=== PATIENT | female | born 1945 | race Caucasian/White ===

== ENCOUNTER → 2016-02-12 16:45 | Outpatient (CLI) | payer MEDICARE, BC ==
[2011-03-24 14:07] VITALS: BMI 33.0
== END | disposition home or self-care (01) ==
LOC: D.MAMMO 15:00
DX: R92.8 Other abnormal and inconclusive findings on diagnostic imaging of breast (principal)

== ENCOUNTER → 2018-01-04 06:45 | Outpatient (CLI) | payer MEDICARE, BC ==
[2011-03-24 14:07] VITALS: BMI 33.0
== END | disposition home or self-care (01) ==
LOC: D.MRI 06:45
DX: R41.3 Other amnesia (principal)

== ENCOUNTER → 2018-03-10 12:59 | Outpatient (CLI) | payer MEDICARE, BC ==
[2011-03-24 14:07] VITALS: BMI 33.0
== END | disposition home or self-care (01) ==
LOC: D.RAD 12:59
DX: M25.552 Pain in left hip (principal); M25.551 Pain in right hip

== ENCOUNTER 2018-04-25 08:00 | Outpatient (CLI) | payer MEDICARE, BC ==
[2011-03-24 14:07] VITALS: BMI 33.0
== END 2018-04-25 09:00 | disposition home or self-care (01) ==
LOC: D.MAMMO 08:00
PROVIDERS: ATTEND Family Medicine Adult Medicine
DX: Z12.31 Encounter for screening mammogram for malignant neoplasm of breast (principal)

== ENCOUNTER 2018-08-01 16:06 | Inpatient (IN) | payer MEDICARE, BC ==
[~2018-08-01] VITALS: Ht 157.5 cm; Wt 82.6 kg
[2018-08-01] MEDS ORDERED: TENORMIN100 MG PO (16:28)
[2018-08-01] MEDS ORDERED: CATAPRES0.1 MG PO (16:29)
[2018-08-01] MEDS ORDERED: LIPITOR10 MG PO (16:29)
[2018-08-01] MEDS ORDERED: FUROSEMIDE20 MG PO (16:31)
[2018-08-01] MEDS ORDERED: CYMBALTA60 MG PO (16:31)
[2018-08-01] MEDS ORDERED: MOBIC7.5 MG PO (16:32)
[2018-08-01] MEDS ORDERED: HYDROCODON-ACE1 EA10 PO (16:32)
[2018-08-01] MEDS ORDERED: TRIBENZOR 40-11 EACH PO (16:34)
[2018-08-01] MEDS ORDERED: K-TAB10 MEQ PO (16:34)
[2018-08-01] MEDS ORDERED: TEMAZEPAM30 MG PO (16:35)
[2018-08-01] MEDS ORDERED: ZANAFLEX4 MG PO (16:36)
[2018-08-01] MEDS ORDERED: TRAZODONE HCL150 MG PO (16:36)
[2018-08-01] MEDS ORDERED: VITAMIN D5000 UNIT (16:37)
[2018-08-01 16:38] VITALS: BP 190/67; BMI 33.3
[2018-08-01 19:25] LABS: CKMB 0.3 U/L (0.0-3.6)
[2018-08-01 19:26] LABS: TROPONIN-I < 0.017 ng/mL (0.000-0.060)
[2018-08-01 21:12] VITALS: BP 171/68
[2018-08-01 21:26] LABS: BASOPHILS 0.3 % (0-2); EOSINOPHILS 2.1 % (0-7); HEMATOCRIT 36.4 % (36.0-48.0); HEMOGLOBIN 12.5 g/dL (12-16); IMMATURE GRANULOCYTES 0.2 % (0-5); LYMPHOCYTES 15.6 % (15-50); MCH 28.5 pg (26.0-34.0); MCHC 34.3 g/dL (31.0-37.0); MCV 83.1 fL (80.0-100.0); MEAN PLATELET VOLUME 9.4 fL (7.4-10.4); MONOCYTES 8.9 % (2-11); NEUTROPHILS 72.9 % (40-80); PLATELET COUNT 253 10x3/uL (130-400); RBC 4.38 10x6/uL (4.00-5.40); RDW 13.2 % (11.5-14.5); WBC 11.2 10x3/uL (4.8-10.8)
[2018-08-01 21:35] LABS: ALBUMIN 3.5 g/dL (3.4-5.0); ANION GAP 13.7 mmol/L (8-16); BILIRUBIN - TOTAL 0.26 mg/dL (0.2-1.3); CALCIUM 9.2 mg/dL (8.5-10.1); CARBON DIOXIDE 27.1 mmol/L (21.0-32.0); PROTEIN - SERUM 7.9 g/dL (6.4-8.2)
[2018-08-01 21:46] LABS: POTASSIUM - SERUM 2.8 mmol/L (3.5-5.1)
[2018-08-01 23:11] LABS: APPEARANCE CLEAR (CLEAR); BILIRUBIN NEGATIVE (NEGATIVE); COLOR YELLOW (YELLOW); GLUCOSE NEGATIVE (NEGATIVE); KETONE NEGATIVE (NEGATIVE); NITRITE NEGATIVE (NEGATIVE); PROTEIN NEGATIVE (NEGATIVE); SPECIFIC GRAVITY 1.005 (1.005-1.020); UROBILINOGEN NORMAL (NORMAL)
[2018-08-02 01:12] VITALS: BP 177/70
[2018-08-02 04:45] VITALS: BP 160/64
[2018-08-02 07:55] LABS: BASOPHILS 0.3 % (0-2); EOSINOPHILS 1.7 % (0-7); HEMATOCRIT 34.1 % (36.0-48.0); HEMOGLOBIN 11.8 g/dL (12-16); IMMATURE GRANULOCYTES 0.2 % (0-5); LYMPHOCYTES 16.8 % (15-50); MCH 28.2 pg (26.0-34.0); MCHC 34.6 g/dL (31.0-37.0); MCV 81.6 fL (80.0-100.0); MONOCYTES 7.8 % (2-11); NEUTROPHILS 73.2 % (40-80); PLATELET COUNT 233 10x3/uL (130-400); RBC 4.18 10x6/uL (4.00-5.40); RDW 13.3 % (11.5-14.5); WBC 10.5 10x3/uL (4.8-10.8)
[2018-08-02 08:13] LABS: ALBUMIN 3.3 g/dL (3.4-5.0); ANION GAP 14.5 mmol/L (8-16); BILIRUBIN - TOTAL 0.4 mg/dL (0.2-1.3); CALCIUM 8.6 mg/dL (8.5-10.1); CARBON DIOXIDE 25.1 mmol/L (21.0-32.0); CREATININE - SERUM 0.8 mg/dL (0.6-1.3); MAGNESIUM - SERUM 1.1 mg/dL (1.8-2.4); PROTEIN - SERUM 7.3 g/dL (6.4-8.2)
[2018-08-02 08:18] LABS: POTASSIUM - SERUM 2.6 mmol/L (3.5-5.1)
[2018-08-02 09:29] VITALS: BP 175/81
[2018-08-02 12:05] VITALS: Ht 157.5 cm; Wt 82.6 kg
[2018-08-02 13:26] LABS: CKMB 0.9 U/L (0.0-3.6); CREATINE KINASE 68 UL (21-215)
[2018-08-02 13:28] LABS: TROPONIN-I < 0.017 ng/mL (0.000-0.060)
[2018-08-02 13:42] VITALS: BP 177/67
[2018-08-02 16:45] VITALS: BP 181/80
[2018-08-02 20:06] LABS: CKMB 0.8 U/L (0.0-3.6); CREATINE KINASE 76 UL (21-215)
[2018-08-02 20:07] LABS: TROPONIN-I < 0.017 ng/mL (0.000-0.060)
[2018-08-02 20:48] VITALS: BP 133/70
[2018-08-03] VITALS (7 sets, daily range): BP systolic 148–198; BP diastolic 60–100
[2018-08-03 00:14] LABS: CKMB 1.1 U/L (0.0-3.6); CREATINE KINASE 89 UL (21-215)
[2018-08-03 00:15] LABS: TROPONIN-I < 0.017 ng/mL (0.000-0.060)
[2018-08-03 04:18] LABS: BASOPHILS 0.2 % (0-2); EOSINOPHILS 1.2 % (0-7); HEMATOCRIT 35.5 % (36.0-48.0); HEMOGLOBIN 12.3 g/dL (12-16); IMMATURE GRANULOCYTES 0.4 % (0-5); LYMPHOCYTES 16.3 % (15-50); MCH 28.5 pg (26.0-34.0); MCHC 34.6 g/dL (31.0-37.0); MCV 82.4 fL (80.0-100.0); MONOCYTES 11.9 % (2-11); PLATELET COUNT 242 10x3/uL (130-400); RBC 4.31 10x6/uL (4.00-5.40); RDW 13.3 % (11.5-14.5); WBC 10.3 10x3/uL (4.8-10.8)
[2018-08-03 04:34] LABS: ALBUMIN 3.3 g/dL (3.4-5.0); ALKALINE PHOSPHATASE 78 U/L (46-116); ALT (SGPT) 19 U/L (10-68); BILIRUBIN - TOTAL 0.36 mg/dL (0.2-1.3); CALCIUM 7.9 mg/dL (8.5-10.1); CARBON DIOXIDE 24.4 mmol/L (21.0-32.0); CHLORIDE - SERUM 98 mmol/L (98-107); CREATININE - SERUM 0.7 mg/dL (0.6-1.3); GLUCOSE 154 mg/dL (74-106); MAGNESIUM - SERUM 1.1 mg/dL (1.8-2.4); PROTEIN - SERUM 7.4 g/dL (6.4-8.2); SODIUM 134 mmol/L (136-145); eGFR NON AFRICAN AMERICAN 87 mL/min (90-120)
[2018-08-03 04:45] LABS: CALC OSMOLALITY 267 mosm/kg (275-300); UREA NITROGEN 5 mg/dL (7-18)
[2018-08-03 04:47] LABS: POTASSIUM - SERUM 2.6 mmol/L (3.5-5.1)
--- NOTE | 2018-08-03 10:00 | CN ---
PATIENT NAME:ERASMO MANSFIELD MEDICAL RECORD: [id number] : 45 LOCATION:D.[facility] ADMIT DATE: 08/01/18 ACCOUNT: [id number] CONSULTING PHYSICIAN: NOLA APODACA MD REFERRING PHYSICIAN: CECIL REYNOLDS MD DATE OF CONSULTATION: 08/02/2018 CARDIOLOGY CONSULTATION DATE OF SERVICE: 08/02/2018 DIAGNOSES: 1. Palpitations. 2. Dizziness. 3. Coronary artery disease. 4. Previous percutaneous transluminal coronary angioplasty stent. 5. Hypertension. 6. Hyperlipidemia. 7. Dehydration. 8. Short-term memory loss. HISTORY OF PRESENT ILLNESS: Mrs. Mansfield is a patient well known to us. She has past history of coronary artery disease, previous PTCA stent. She has not had any anginal symptomatology, no chest pain or chest discomfort. She complains of intermittent palpitations and dizziness. Her EKG is with no ST-T abnormalities. Telemetry has been with no dysrhythmias since she has been in. PHYSICAL EXAMINATION: GENERAL APPEARANCE: Well-nourished, well-developed, appears stated age. Level of distress, comfortable. PSYCHIATRIC: Mental status, alert, normal affect. Orientation, oriented to time, place and person. EYES: Lids and conjunctiva, noninjected. No discharge, no pallor. ENT: Lips, teeth, gums, normal dentition. Oropharynx, no cyanosis, no pallor. NECK: Carotid arteries, bilateral normal upstroke, no bruits, no thrills. JUGULAR VEINS: No jugular venous pressure or distention. CERVICAL LYMPH NODES: Nontender, nonenlarged. THYROID: Not enlarged. Nontender. No nodules. LUNGS: Respiratory effort, unlabored. CHEST: Normal curvature. No thoracic deformity. No chest wall tenderness. Percussion, resonant. Auscultation, clear. No wheezes, no rales, no rhonchi. CARDIOVASCULAR: Precordial exam, nondisplaced. No heaves or pericardial thrills. Rate and rhythm, regular. Heart sounds, normal S1, normal S2. No S3, no gallop, no rub. Systolic murmur, not heard. Diastolic murmur, not heard. EXTREMITIES: No cyanosis, no edema. Peripheral pulses, full and equal in all extremities, except as noted. No bruits appreciated. ABDOMEN: Soft, nondistended. Normal aorta. No bruit. Nontender. No masses. Liver, nontender, no hepatomegaly. Spleen, nontender, no splenomegaly. MUSCULOSKELETAL: No joint tenderness. No joint swelling. No erythema. NEUROLOGICAL: Normal gait, normal strength, normal tone. SKIN: Warm and dry. OVERALL IMPRESSION: Palpitations, unknown etiology. She is on atenolol for blood pressure as well as Tribenzor. Her blood pressure is under good control with this. Heart rate has been 60 and sinus. At this time, we will continue CONSULT REPORT [id number] ERASMO MANSFIELD telemetry and no other cardiac workup or treatment is necessary. Continue the atenolol. TRANSINT:[id number] Voice Confirmation ID: [id number] DOCUMENT ID: [id number] NOLA APODACA MD at 1000 CC: [id number] DICTATION DATE: 08/02/18924 AUDIOVISUAL LEAD TECHNICIAN: 08/02/18 1101 ADM IN [place] [id number] [place] [id number]
--- NOTE | 2018-08-03 10:00 | EC ---
PATIENT:ERASMO MANSFIELD DATE OF SERVICE: 08/01/18 SEX: F MEDICAL RECORD: [id number] DATE OF : [birth year] LOCATION:D.[facility] [place] AGE OF PATIENT: 72 ADMISSION DATE: 08/01/18 REFERRING PHYSICIAN: INTERPRETING PHYSICIAN: NOLA ESCALANTE MD ECHOCARDIOGRAM REPORT ECHO CHARGES 4 ECHO COMPLETE Date: 08/02/18 CLINICAL DIAGNOSIS: LE SWELLING ECHOCARDIOGRAPHIC MEASUREMENTS (adult normal given) AC root (d.<3.7cm) 2.3 cm LV Septum d (<1.2 cm> 1.0 cm Valve Excursion 0.9 cm LV Septum (systole) 1.1 cm Left Atria (s.<4.0cm> 3.5 cm LVPW d(<1.2cm) 1.1 cm RV (d.<2.3cm) 2.4 cm LVPW (sytole) 1.2 cm LV diastole(<5.6CM) 4.7 cm MV E-F(>70mm/sec) cm LV systole 3.7 cm LVOT Diameter 1.5 cm MV exc.(>10mm) cm Est.ejection fraction (50-75%) % DOPPLER: LVIT cm/sec A 168 cm/sec E 114 cm/sec LA cm/sec RVSP 27.1 mmHg LVOT 131 cm/sec AOP1/2T m/s Asc. Ao 258 cm/sec RVOT 96 cm/sec RA cm/sec PA 101 cm/sec AV Gradient Peak 26.6 mmHg AV Mean 17.9 mmHg AV Area 1.0 cm MV Gradient Peak 13.9 mmHg MV Mean 6.1 mmHg MV Area cm COMMENTS: Electric Detector Operator: Prasad ZHANG Academic Interventionist: 1 Dr. Escalante TAPE# PACS Pericardial Effusion Y DATE OF SERVICE: 08/02/2018 FINDINGS: 1. Left ventricular chamber size is within normal limits. Left ventricular systolic function is normal. Overall ejection fraction is estimated at 60%. 2. Left atrium, right atrium, and right ventricle chamber sizes are within normal limit. 3. Valvular structures have normal structure and motion. 4. Doppler interrogation reveals mild tricuspid regurgitation. No other valvular insufficiency or stenosis. Pulmonary systolic pressure is estimated at ECHOCARDIOGRAM REPORT [id number] ERASMO MANSFIELD 27 mmHg. 5. No evidence of pericardial effusion or left ventricular thrombus. TRANSINT:[id number] Voice Confirmation ID: [id number] DOCUMENT ID: [id number] NOLA ESCALANTE MD at 1000 CC: [id number] DICTATION DATE: 08/02/18 1545 CONTAINER REPAIRER: 08/02/182001 ADM IN [facility] [address] [place] [id number]
[2018-08-03 16:01] LABS: MAGNESIUM - SERUM 1.1 mg/dL (1.8-2.4)
[2018-08-03 16:04] LABS: POTASSIUM - SERUM 2.8 mmol/L (3.5-5.1)
[2018-08-04 01:25] VITALS: BP 161/69
[2018-08-04 05:29] VITALS: BP 155/68
[2018-08-04 06:43] LABS: BASOPHILS 0.3 % (0-2); EOSINOPHILS 1.8 % (0-7); HEMATOCRIT 35.4 % (36.0-48.0); HEMOGLOBIN 12.2 g/dL (12-16); IMMATURE GRANULOCYTES 0.2 % (0-5); LYMPHOCYTES 19.7 % (15-50); MCH 28.4 pg (26.0-34.0); MCHC 34.5 g/dL (31.0-37.0); MCV 82.5 fL (80.0-100.0); MEAN PLATELET VOLUME 9.3 fL (7.4-10.4); MONOCYTES 12.3 % (2-11); NEUTROPHILS 65.7 % (40-80); PLATELET COUNT 273 10x3/uL (130-400); RBC 4.29 10x6/uL (4.00-5.40); RDW 13.6 % (11.5-14.5); WBC 10.8 10x3/uL (4.8-10.8)
[2018-08-04 07:04] LABS: ALBUMIN 3.1 g/dL (3.4-5.0); ALKALINE PHOSPHATASE 72 U/L (46-116); ALT (SGPT) 21 U/L (10-68); BILIRUBIN - TOTAL 0.35 mg/dL (0.2-1.3); CALC OSMOLALITY 255 mosm/kg (275-300); CALCIUM 7.8 mg/dL (8.5-10.1); CARBON DIOXIDE 23.1 mmol/L (21.0-32.0); CHLORIDE - SERUM 96 mmol/L (98-107); CREATININE - SERUM 0.6 mg/dL (0.6-1.3); GLUCOSE 104 mg/dL (74-106); MAGNESIUM - SERUM 1.5 mg/dL (1.8-2.4); POTASSIUM - SERUM 3.3 mmol/L (3.5-5.1); SODIUM 129 mmol/L (136-145); UREA NITROGEN 5 mg/dL (7-18); eGFR NON AFRICAN AMERICAN > 90 mL/min (90-120)
[2018-08-04 09:11] VITALS: BP 176/73
[2018-08-04 12:56] VITALS: BP 166/71
--- NOTE | 2018-08-04 14:19 | MORECARE ---
CASE MANAGEMENT DISCHARGE SUMMARY PATIENT: ERASMO MANSFIELD UNIT: [id number] ADM DATE: 08/01/18 AGE: 72 : 45 SEX: F ROOM/BED: D.2201 AUTHOR: DRU JENKINS PHYSICIAN: REFERRING PHYSICIAN: CECIL REYNOLDS MD DATE OF SERVICE: 08/04/18 Discharge Plan Patient Name: ERASMO MANSFIELD [facility] [facility] 1945 Planned Disposition: Anticipated Discharge Date: Discharge Date: Expected LOS: Initial Reviewer: [email or web address] Initial Review Date: 08/04/2018 Generated: 08/04/18 3:19 pm DCPIA - Discharge Planning Initial Assessment Updated by [email or web address]: Radha Choudhary on 08/04/18 2:17 pm * Is the patient Alert and Oriented? Yes * PCP GAIL * Pharmacy [facility] * Preadmission Environment Home Alone * ADLs Independent * Other Equipment HEARING AIDS * List name and contact numbers for known caregivers / representatives who currently or will assist patient after discharge: EFRAIN AKERS, DAUGHTER, * Verbal permission to speak to the caregivers and representatives has been obtained from the patient. Yes * Additional services required to return to the preadmission environment? Yes * Can the patient safely return to the preadmission environment? Yes * Has this patient been hospitalized within the prior 30 days at any hospital? No Patient Name: ERASMO MANSFIELD Page [id number] at 1419 All edits/amendments must be made on the electronic document DICTATION DATE: 08/04/181418 SKI MAKER: COURTNEY 08/04/18 1419 RPT#: [id number] DC DATE: STATUS: ADM IN [facility] [address] [place] [address] END OF REPORT
--- NOTE | 2018-08-04 14:29 | MORECARE ---
CASE MANAGEMENT DISCHARGE SUMMARY PATIENT: ERASMO MANSFIELD UNIT: [id number] ADM DATE: 08/01/18 AGE: 72 : 45 SEX: F ROOM/BED: D.2201 AUTHOR: ALICE,DOC PHYSICIAN: REFERRING PHYSICIAN: CECIL REYNOLDS MD DATE OF SERVICE: 08/04/18 Discharge Plan Patient Name: ERASMO MANSFIELD Facility: [facility]:[place] : 1945 Planned Disposition: Anticipated Discharge Date: Discharge Date: Expected LOS: Initial Reviewer: [email or web address] Initial Review Date: 08/04/2018 Generated: 08/04/18 3:29 pm Comments DCP- Discharge Planning Updated by [id number]: Radhaaide Choudhary on 08/04/18 1:[address] Patient Name: ERASMO MANSFIELD Admission Status: Urgent Accout number: [id number] Admission Date: 08-01-2018 : 1945 Admission Diagnosis:ELEVATED WHITE BLOOD CELL COUNT, UNSPECIFIED Attending: CECIL BUSH Current LOS: 3 Anticipated DC Date: Planned Disposition: Primary Insurance: MEDICARE A & B Discharge Planning Comments: CM MET WITH PATIENT ABOUT DC PLANNING/ NEEDS. PATIENT STATES SHE IS NOT INTERESTED IN [facility] BUT WOULD LIKE . [facility] OR [facility] AND NEEDS A WALKER, JAVAD FOR [place]. SHE WANTS ME TO CONTACT HER DAUGHTER TO SEE IF SHE MADE THE RIGHT DECISIONS ON THE HH. I CALLED HER DAUGHTER ITA LACKEY AT [phone] BUT NO ANSWER. CM TO FOLLOW AND ASSIST NEEDED. Laser Technician: Radha Choudhary DCPIA - Discharge Planning Initial Assessment Updated by [id number]: Radha Choudhary on 08/04/18 2:17 pm * Is the patient Alert and Oriented? Yes * PCP GAIL * Pharmacy [facility] * Preadmission Environment Home Alone * ADLs Independent * Other Equipment HEARING AIDS * List name and contact numbers for known caregivers / representatives who currently or will assist patient after discharge: EFRAIN AKERS, DAUGHTER, * Verbal permission to speak to the caregivers and representatives has been obtained from the patient. Yes * Additional services required to return to the preadmission environment? Yes * Can the patient safely return to the preadmission environment? Yes * Has this patient been hospitalized within the prior 30 days at any hospital? No Coverage Notice Reviewer: [email or web address] - Radha Choudhary Notice Issued Date-Time: 08/04/2018 14:21 Notice Type: Patient Choice Letter Notice Delivered To: Patient Relationship to Patient: Medicaid Service Coordinator Name: Delivery Method: HAND - Hand Delivered Sudha Days: Prior Verbal Notification: Recipient Understood Notice: Yes Recipient Signature: Yes Med Rec Note Co-signed by Attending: Coverage Notice Comment: [facility], OR [facility]. Last DP export: 08/04/18 1:19 p Patient Name: ERASMO MANSFIELD Page [id number] at 1429 All edits/amendments must be made on the electronic document DICTATION DATE: 08/04/181427 RAILROAD CONSTRUCTION DIRECTOR: COURTNEY 08/04/181427 RPT#: [id number] DC DATE: STATUS: ADM IN [facility] [address] [place] [address] END OF REPORT
--- NOTE | 2018-08-04 15:27 | MORECARE ---
CASE MANAGEMENT DISCHARGE SUMMARY PATIENT: ERASMO MANSFIELD UNIT: [id number] ADM DATE: 08/01/18 AGE: 72 : 45 SEX: F ROOM/BED: D.2201 AUTHOR: ALICE,DOC PHYSICIAN: REFERRING PHYSICIAN: CECIL REYNOLDS MD DATE OF SERVICE: 08/04/18 Discharge Plan Patient Name: ERASMO MANSFIELD Facility: [facility]:[place] : 1945 Planned Disposition: Anticipated Discharge Date: Discharge Date: Expected LOS: Initial Reviewer: [email or web address] Initial Review Date: 08/04/2018 Generated: 08/04/18 4:26 pm Comments DCP- Discharge Planning Updated by [email or web address]: Radha Choudhary on 08/04/18 2:[address] Patient Name: ERASMO MANSFIELD Admission Status: Urgent Accout number: [id number] Admission Date: 08-01-2018 : 1945 Admission Diagnosis:ELEVATED WHITE BLOOD CELL COUNT, UNSPECIFIED Attending: CECIL BUSH Current LOS: 3 Anticipated DC Date: Planned Disposition: Primary Insurance: MEDICARE A & B Discharge Planning Comments: CM MET WITH PATIENT ABOUT DC PLANNING/ NEEDS. PATIENT STATES SHE IS NOT INTERESTED IN [facility] BUT WOULD LIKE . [facility] OR [facility] AND NEEDS A WALKER, JAVAD FOR [place]. SHE WANTS ME TO CONTACT HER DAUGHTER TO SEE IF SHE MADE THE RIGHT DECISIONS ON THE HH. I CALLED HER DAUGHTER ITA LACKEY AT [phone] BUT NO ANSWER. CM TO FOLLOW AND ASSIST NEEDED. Road Grader: Radha Choudhary Appended by Radha Choudhary on 08/04/2018 15:19 CDT: PATIENT STATED THAT IF THE DOCTOR RECOMENDS REHAB THEN SHE WOULD BE INTERESTED IN INPATIENT REHAB. DCPIA - Discharge Planning Initial Assessment Updated by [email or web address]: Radha Choudhary on 08/04/18 2:17 pm * Is the patient Alert and Oriented? Yes * PCP GAIL * Pharmacy [facility] * Preadmission Environment Home Alone * ADLs Independent * Other Equipment HEARING AIDS * List name and contact numbers for known caregivers / representatives who currently or will assist patient after discharge: EFRAIN AKERS, DAUGHTER, * Verbal permission to speak to the caregivers and representatives has been obtained from the patient. Yes * Additional services required to return to the preadmission environment? Yes * Can the patient safely return to the preadmission environment? Yes * Has this patient been hospitalized within the prior 30 days at any hospital? No Coverage Notice Reviewer: [email or web address] Olena Radhaaide Choudhary Notice Issued Date-Time: 08/04/2018 14:21 Notice Type: Patient Choice Letter Notice Delivered To: Patient Relationship to Patient: Bookkeeping Service Sales Agent Name: Delivery Method: HAND - Hand Delivered Sudha Days: Prior Verbal Notification: Recipient Understood Notice: Yes Recipient Signature: Yes Med Rec Note Co-signed by Attending: Coverage Notice Comment: [facility], OR [facility]. Last DP export: 08/04/18 1:29 p Patient Name: ERASMO MANSFIELD Page [phone] at 1527 All edits/amendments must be made on the electronic document DICTATION DATE: 08/04/18 1526 THIRD MATE: COURTNEY 08/04/18 1526 RPT#: [id number] DC DATE: STATUS: ADM IN [facility] [address] [place] [address] END OF REPORT
[2018-08-04 16:45] VITALS: BP 131/62
[2018-08-04 21:22] VITALS: BP 116/65
[2018-08-05 01:33] VITALS: BP 187/73
[2018-08-05 04:44] LABS: ALBUMIN 3.1 g/dL (3.4-5.0); ANION GAP 13.6 mmol/L (8-16); BILIRUBIN - TOTAL 0.16 mg/dL (0.2-1.3); CALCIUM 7.7 mg/dL (8.5-10.1); CARBON DIOXIDE 23.4 mmol/L (21.0-32.0); MAGNESIUM - SERUM 1.5 mg/dL (1.8-2.4); PROTEIN - SERUM 6.8 g/dL (6.4-8.2)
[2018-08-05 04:45] LABS: CREATININE - SERUM 0.9 mg/dL (0.6-1.3)
[2018-08-05 06:04] VITALS: BP 164/66
[2018-08-05 07:51] LABS: BASOPHILS 0.4 % (0-2); EOSINOPHILS 4.4 % (0-7); HEMATOCRIT 34.3 % (36.0-48.0); HEMOGLOBIN 11.6 g/dL (12-16); IMMATURE GRANULOCYTES 0.2 % (0-5); LYMPHOCYTES 19.9 % (15-50); MCH 28.4 pg (26.0-34.0); MCHC 33.8 g/dL (31.0-37.0); MCV 83.9 fL (80.0-100.0); MEAN PLATELET VOLUME 9.5 fL (7.4-10.4); NEUTROPHILS 66.1 % (40-80); PLATELET COUNT 238 10x3/uL (130-400); RBC 4.09 10x6/uL (4.00-5.40); RDW 13.8 % (11.5-14.5); WBC 10.7 10x3/uL (4.8-10.8)
[2018-08-05 08:40] VITALS: BP 184/76
[2018-08-05 12:03] VITALS: BP 183/69
[2018-08-05] MEDS ORDERED: ROCEPHIN 1 GM/D51 G1 IV (15:16)
[2018-08-05] MEDS ORDERED: QUESTRAN PACKET PO (15:16)
[2018-08-05] MEDS ORDERED: K-DUR20 MEQ PO (15:17)
[2018-08-05] MEDS ORDERED: OXYBUTYNIN CHLOR5 MG PO (15:17)
[2018-08-05] MEDS ORDERED: LOPERAMIDE HCL2 MG PO (15:17)
[2018-08-05] MEDS ORDERED: FLORAJEN3 CAPS460 MG PO (15:17)
[2018-08-05] MEDS ORDERED: RESTORIL15 MG PO (15:18)
[2018-08-05] MEDS ORDERED: PROTONIX40 MG PO (15:19)
[2018-08-05 16:39] VITALS: BP 183/68
--- NOTE | 2018-08-06 11:18 | CN ---
PATIENT NAME:ERASMO MANSFIELD MEDICAL RECORD: [id number] : 45 LOCATION:D.[facility] ADMIT DATE: 08/01/18 ACCOUNT: [id number] CONSULTING PHYSICIAN: JAYLA FRANKEL MD REFERRING PHYSICIAN: CECIL REYNOLDS MD DATE OF CONSULTATION: 08/05/2018 IDENTIFYING DATA: The patient is 72 years old and she is admitted to the hospital on a voluntary basis. CHIEF COMPLAINT: None. HISTORY OF PRESENT ILLNESS: I was asked to see the patient because of concerns about dementia. I have examined the patient and will detail her mental status exam below, but she has no evidence of dementia. She does, however, have evidence of a serious and longstanding major depressive illness. She denies any substance abuse issues or thoughts of harming herself, but she endorses numerous neurovegetative depressive symptoms and has serious ongoing stressors that have intensified since her senior living and the of her . MENTAL STATUS EXAMINATION: The patient is awake, alert and oriented fully to person, place, time and situation. Her mood is depressed. Her affect is constricted. Thought processes are circumstantial. Memory, concentration, and abstraction abilities are intact. She denies any intent to harm herself or others as well as overt psychotic symptoms. ASSESSMENT: Major depression. PLAN: The patient is in need of ongoing antidepressant therapy. She is taking Restoril for sleep and I would prefer that this not be anything more than a very short term approach. I also have concerns about her use of hydrocodone for what is up by her account, chronic back pain that no one can seem to identify the pathology producing the pain. I am viewing these as depressive equivalents. I would recommend her Cymbalta be increased to 90 mg daily and that she be followed on an outpatient basis by the [facility] one of the local psychiatrist. In addition to this, there is an excellent outpatient counseling program at [facility] for geriatric patients. TRANSINT:[id number] Voice Confirmation ID: [id number] DOCUMENT ID: [id number] JAYLA FRANKEL MD at 1118 CC: [id number] DICTATION DATE: 08/05/18 1650 GROUND CREW LINES PERSON: 08/05/18 1812 DIS IN 08/05/18 [facility] [address] [place] [address]
== END 2018-08-05 18:07 | DRG 814 ==
LOC: D.MS 16:06
PROVIDERS: Family Medicine; ADMIT Family Medicine Adult Medicine; ATTEND Family Medicine Adult Medicine
DX: D72.829 Elevated white blood cell count, unspecified (principal); G93.41 Metabolic encephalopathy; E86.0 Dehydration; R41.0 Disorientation, unspecified; I95.1 Orthostatic hypotension; I25.10 Atherosclerotic heart disease of native coronary artery without angina pectoris; K21.9 Gastro-esophageal reflux disease without esophagitis; R73.9 Hyperglycemia, unspecified

== ENCOUNTER 2018-08-05 19:05 | Inpatient (IN) | payer MEDICARE, BC ==
[~2018-08-05] VITALS: Ht 157.5 cm; Wt 82.6 kg
[~2018-08-05 19:05] MED LIST: CATAPRES0.1 MG PO; CYMBALTA60 MG PO; FLORAJEN3 CAPS460 MG PO; FUROSEMIDE20 MG PO; HYDROCODON-ACE1 EA10 PO; K-DUR20 MEQ PO; K-TAB10 MEQ PO; LIPITOR10 MG PO; LOPERAMIDE HCL2 MG PO; MOBIC7.5 MG PO; OXYBUTYNIN CHLOR5 MG PO; PROTONIX40 MG PO; QUESTRAN PACKET PO; RESTORIL15 MG PO; ROCEPHIN 1 GM/D51 G1 IV; TEMAZEPAM30 MG PO; TENORMIN100 MG PO; TRAZODONE HCL150 MG PO; TRIBENZOR 40-11 EACH PO; VITAMIN D5000 UNIT; ZANAFLEX4 MG PO
[2018-08-05 19:19] VITALS: BMI 33.3
--- NOTE | 2018-08-05 21:21 | NUR ---
THE PATIENT IS ADMITTED TO THE REHAB UNIT. BED IS IN THE LOW POSITION WITH SIDERAILS X2 AND CALL LIGHT WITHIN REACH. THE PATIENT DEMONSTRTAES APPROPRIATE USE OF A CALL LIGHT. THE PATIENT APPEARS COMFORTABLE WITH NO QUESTIONS OR CONCERNS AT THIS TIME.
[2018-08-05 23:52] VITALS: BP 163/77
[2018-08-06 08:22] LABS: ANION GAP 14.4 mmol/L (8-16); CALCIUM 8.3 mg/dL (8.5-10.1); CARBON DIOXIDE 23.2 mmol/L (21.0-32.0); CREATININE - SERUM 0.8 mg/dL (0.6-1.3); POTASSIUM - SERUM 3.6 mmol/L (3.5-5.1)
[2018-08-06 08:25] LABS: HEMATOCRIT 33.3 % (36.0-48.0); HEMOGLOBIN 11.7 g/dL (12-16); MCH 28.6 pg (26.0-34.0); MCHC 35.1 g/dL (31.0-37.0); MEAN PLATELET VOLUME 9.3 fL (7.4-10.4); PLATELET COUNT 270 10x3/uL (130-400); RBC 4.09 10x6/uL (4.00-5.40); RDW 13.2 % (11.5-14.5); WBC 9.6 10x3/uL (4.8-10.8)
[2018-08-06 08:26] LABS: MCV 81.4 fL (80.0-100.0)
--- NOTE | 2018-08-06 09:00 | NUR ---
PATIENT IN REHAB ROOM. ALERT/ORIENT. C/O OF PAIN THAT SHE THINKS IS FROM A UTI. DR. Hector NAJERA NOTIFED. WILL CONTINUE WITH PLAN OF CARE
[2018-08-06 09:02] LABS: BASOPHILS 1 % (0-2); LYMPHOCYTES 22 % (15-50); MONOCYTES 6 % (2-11); NEUTROPHILS 71 % (40-80); PLATELET ESTIMATE NORMAL
[2018-08-06 10:44] VITALS: BP 174/63
[2018-08-06 11:40] VITALS: Ht 157.5 cm; Wt 82.6 kg
--- NOTE | 2018-08-06 11:44 | NUR ---
I have reviewed this patient and I concur with the Shift Assessment completed by the Licensed Practical Nurse today this shift.
--- NOTE | 2018-08-06 16:02 | NUR ---
PATIENT HELPED TO BATHROOM. MODERATE ASST OUT OF BED. USING WHEELED WALKER. PATIENT IS ABLE TO TRANSFER BY SELF FROM WALKER ONTO TOILET AND OFF OF TOILET. NEEDS ASST WITH WIPING SELF AND PULLING UP PANTS
[2018-08-06 21:24] VITALS: BP 163/72
--- NOTE | 2018-08-06 23:04 | NUR ---
THE PATIENT WAS LYING IN BED WHEN STAFF ENTERED HER ROOM. BED IS IN THE LOW POSITION WITH SIDERAILS X2 AND CALL LIGHT WITHIN REACH. THE PATIENT WAS EDUCATED ON AND DEMONSTRATES THE NEED TO CALL STAFF FOR ANYTHING THAT REQUIRES HER TO GET OUT OF BED. THE PATIENT APPEARS COMFORTABLE WITH NO QUESTIONS OR CONCERNS AT THIS TIME.
--- NOTE | 2018-08-07 03:24 | NUR ---
THE PATIENT APPEARS TO BE SLEEPING COMFORTABLY WITH SIDERAILS UP X2 AND CALL LIGHT WITHIN REACH.
[2018-08-07 08:12] VITALS: BP 169/72
--- NOTE | 2018-08-07 08:30 | NUR ---
I have reviewed this patient and I concur with the Shift Assessment completed by the Licensed Practical Nurse today this shift.
--- NOTE | 2018-08-07 09:28 | NUR ---
PATIENT IS ALERT/ORIENT. SITTING UP IN BED WATCHIN T.V. CALL LIGHT WITHIN REACH. VOICES NO NEEDS. WILL CONTINUE WITH PLAN OF CARE
--- NOTE | 2018-08-07 12:44 | NUR ---
PATIENT HELPED TO BATHROOM. MODERATE ASST FROM BED TO USING WHEELED WALKER.
[2018-08-07 19:23] VITALS: BP 145/55
--- NOTE | 2018-08-07 21:28 | NUR ---
THE PATIENT APPEARED TO BE SLEEPING BUT EASILY AWOKE WHEN STAFF ENTERED HER ROOM. BED IS IN THE LOW POSITION WITH SIDERAILS X2 AND CALL LIGHT WITHIN REACH. THE PATIENT WAS EDUCATED ON AND DEMONSTRATED TH BRAULIO TO CALL FOR STAFF WHENEVER SHE NEEDS TO GET OUT OF BED. THE PATIENT APPEARS COMFORTABLE WITH NO QUESTIONS OR CONCERNS AT THIS TIME.
[2018-08-08 06:59] LABS: BASOPHILS 0.3 % (0-2); EOSINOPHILS 2.3 % (0-7); HEMATOCRIT 36.5 % (36.0-48.0); HEMOGLOBIN 12.9 g/dL (12-16); IMMATURE GRANULOCYTES 0.2 % (0-5); LYMPHOCYTES 21.6 % (15-50); MCH 28.5 pg (26.0-34.0); MCHC 35.3 g/dL (31.0-37.0); MCV 80.8 fL (80.0-100.0); MEAN PLATELET VOLUME 9.4 fL (7.4-10.4); MONOCYTES 11.8 % (2-11); NEUTROPHILS 63.8 % (40-80); RBC 4.52 10x6/uL (4.00-5.40); RDW 13.1 % (11.5-14.5); WBC 11.6 10x3/uL (4.8-10.8)
[2018-08-08 07:01] LABS: PLATELET COUNT 348 10x3/uL (130-400)
[2018-08-08 07:10] LABS: ANION GAP 16.4 mmol/L (8-16); CALCIUM 9.1 mg/dL (8.5-10.1); CARBON DIOXIDE 21.4 mmol/L (21.0-32.0); CREATININE - SERUM 0.8 mg/dL (0.6-1.3); POTASSIUM - SERUM 3.8 mmol/L (3.5-5.1)
--- NOTE | 2018-08-08 07:59 | NUR ---
PATIENT ALERT/ORIENT. SITTING UP IN WHEELCHAIR FOR BREAKFAST. CALL LIGHT WITHIN REACH. VOICES NO NEEDS. WILL CONTINUE WITH PLAIN OF CARE
[2018-08-08 08:00] VITALS: BP 175/76
--- NOTE | 2018-08-08 09:47 | RHP ---
PATIENT: ERASMO MANSFIELD MEDICAL RECORD: [id number] ACCOUNT: [id number] LOCATION:[facility] : [birth year] ADMISSION DATE: 08/05/18 REHABILITATION HISTORY AND PHYSICAL EXAMINATION POST ADMISSION PHYSICIAN EXAMINATION DATE OF ADMISSION: 08/05/2018 ADMITTING DIAGNOSIS: Brain dysfunction, nontraumatic. HISTORY OF PRESENT ILLNESS: The patient is a 72-year-old female patient admitted with brain dysfunction, acute metabolic encephalopathy. She is a patient of Dr. Blanco, she was just seen in the office on 08/01/2018. Complained of some short-term memory problems. She has not been eating or drinking well. She was found to have orthostatic hypotension as well as significant leukocytosis. Her urine was clean at that time. She had some associated dizziness and palpitation. She is hard of hearing and wears hearing aids, got a history of coronary artery disease, myocardial infarction, arthritis. Her potassium was 2.6. Her sodium was 129. She had an elevated blood sugar. Chest x-ray did not show anything acute. MRI of her brain showed no acute abnormalities. She was started on IV fluids and IV Rocephin, telemetry and blood cultures. Cardiology was consulted secondary to her palpitations. She is on atenolol for blood pressure as well as Tribenzor. Her blood pressure has been under good control with this in the past, but has actually elevated here in the rehab. She needs to be watched closely for her electrolytes and also monitoring her sodium and her potassium. She previously lived alone. She was independent with ADLs and mobility. She is mod-to-max assist for ADLs and mobility. She fatigues quickly and has a decent balance, but this does make her a fall risk, which is a barrier to her discharge home. COMORBIDITIES: In this patient include acute metabolic encephalopathy, dehydration, hypokalemia, leukocytosis, orthostatic hypotension, palpitations, dizziness, hyperlipidemia, coronary artery disease, history of AR in the past, arthritis and hyperglycemia. PAST MEDICAL HISTORY: Significant for AR, hypertension, acid reflux, arthritis. PAST SURGICAL HISTORY: Includes hysterectomy and she has also had stent placement in the past. ALLERGIES: No known drug allergies. CURRENT MEDICATIONS: Include Rocephin 1 gram every 24 hours. She is on Floranex daily. She is on cholestyramine secondary to diarrhea. She is on hydrochlorothiazide 12.5 mg daily, amlodipine 10 mg daily, Benicar 40 mg daily. She is on Ditropan 5 mg daily. She is on Cymbalta 60 mg daily, Lipitor 40 mg daily, atenolol 100 mg daily. She is on [place] 10/325 one tab every 12 hours, but she states she has been on this on a every 6 hours basis. Lasix 20 mg b.i.d., Protonix 40 mg daily, potassium 20 mEq b.i.d., clonidine 0.1 mg b.i.d., loperamide 2 mg every 6 hours p.r.n. and Restoril 15 mg at bedtime p.r.n. HABITS: No current alcohol or tobacco use. FAMILY HISTORY: Noncontributory. HISTORY AND PHYSICAL [id number] ERASMO MANSFIELD SOCIAL HISTORY: The patient hopes to return back home and get back to her prior level of functioning. REVIEW OF SYSTEMS: GENERAL: Does complain of weakness and fatigue and also complaints of pain. HEENT: Denies cold, cough, or congestion. CARDIOVASCULAR: Denies any chest pain. PHYSICAL EXAMINATION: VITAL SIGNS: Stable. Her blood pressure is noted to be elevated at 174/63, her sat is 95% on respirations, pulse 78, afebrile. GENERAL: A well-developed female who is in no acute distress. She is somewhat obese. HEENT: Normocephalic and atraumatic. Mucosa moist. NECK: Supple. No lymphadenopathy. LUNGS: Clear at this time in upper berg. HEART: Regular rate and rhythm. No murmurs, rubs or gallops. ABDOMEN: Soft, nontender, nondistended. Positive bowel sounds times 4. EXTREMITIES: No clubbing, cyanosis or edema. NEUROLOGIC: She does have some mild changes in her mentation. LABORATORY DATA: Her white count is 9.6, H&H of 11.7 and 33.3. Her platelet count is 220. Her sodium is 128, potassium 3.6, BUN and creatinine 8 and 0.8 and blood sugar is noted to be 113. ASSESSMENT: This is a 72-year-old female patient admitted to rehab with a working diagnosis of metabolic encephalopathy. The patient has potential to make improvement. We instituted the following multidisciplinary therapies include, but not limited to physical, occupational, respiratory, speech, nutritional services, prosthetics and orthotics. Given her complex medical condition and risk for more complications, rehabilitation services cannot be provided at a low level of care such as jail facility. PLAN: 1. Admit to [facility] rehab for inpatient therapy to include the following disciplines: A. Physical therapy to improve gait, all transfer skills and bed mobility to a modified independent level. B. Occupational therapy to assist with gait and ADLs. C. Case management to assist with discharge planning and placement options. D. Nutrition to assist with nutritional needs. E. Rehabilitation nursing to assist in monitoring the patient's underlying medical conditions and to assist with any type of bowel and bladder management. 2. The patient's current medication and medical care will be continued. 3. The patient will be placed on standard fall precautions. 4. I am going to go ahead and adjust her medicines. 5. We will watch her blood pressure closely and adjust meds as needed. TRANSINT:[id number] Voice Confirmation ID: [id number] DOCUMENT ID: [id number] MATTEO notes whether there has been none or any medical/functional change since admission: - No change since pre-admission screen. HISTORY AND PHYSICAL [id number] ERASMO MANSFIELD attests patient continues to be appropriate for IRF: - Continues to be appropriate. AVA NAJERA MD at 0947 CC: [id number] DICTATION DATE: 08/06/18 1123 SHOE SHANKER: 08/06/18 1334 ADM IN [facility] [address] [place] [address]
--- NOTE | 2018-08-08 11:14 | NUR ---
PATIENT BACK IN BED AFTER THERAPY. CALL LIGHT WITHIN REACH
--- NOTE | 2018-08-08 13:18 | NUR ---
NUTRIIION F/U CHART REVIEWED, PT VISIT. PT TOLERATING REG DIET WTIH ~50% INTAKE RECENT MEALS. WILL CONTINUE TO PROVIDE DIET, MONITOR PO INTAKE. RD FOLLOWING
--- NOTE | 2018-08-08 14:06 | NUR ---
PATIENT IS A MIN TO MOD ASST FROM BED TO WHEELCHAIR
--- NOTE | 2018-08-08 14:17 | NUR ---
PATIENT ADMITTED TO REHAB FROM ACUTE FLOOR. DR. REYNOLDS IS HER PCP. SHE WOULD LIKE EITHER [facility] OR [facility] AT DISCHARGE. WILL CONTINUE TO FOLLOW WITH PATIENT AND WILL ASSIST WITH NEEDS.
--- NOTE | 2018-08-08 15:25 | NUR ---
PATIENT IN REHAB ROOM. WORKING WITH OCCUPATIONAL THERAPIST
--- NOTE | 2018-08-08 19:45 | NUR ---
ASSESSMENT PER FLOW SHEET, SALINE LOCK IN RIGHT HAND INTACT WITH NO REDNESS OR EDEMA, PT DENIES FLATUS, LOOSE BM TODAY, AND VOIDING WITH NO DIFFICULTY, PT RATES BACK PAIN 7/, INFORMED PT THAT I WILL CHECK TO SEE WHEN PAIN MED IS DUE, PT REPORTS THAT THE OTHER NURSE GAVE HER A PAIN PILL, PT DENIES NEEDS AT THIS TIME, BED IN LOW POSITION, SIDE RAILS X 2, CALL LIGHT IN REACH
--- NOTE | 2018-08-08 20:20 | NUR ---
PT WATCHING TV, SERVED H20 AND PROVIDED MENU
[2018-08-08 20:38] VITALS: BP 157/56
--- NOTE | 2018-08-08 21:35 | NUR ---
PT WATCHING TV, ADM 2100 MEDS PER MD ORDERS, SEE EMAR, PT DENIES NEEDS AT THIS TIME, BED IN LOW POSITION, SIDE RAILS X 2, CALL LIGHT IN REACH
--- NOTE | 2018-08-08 22:15 | NUR ---
REPORT TO KAREN Chris LPN
--- NOTE | 2018-08-08 23:08 | NUR ---
REST QUIETLY IN BED. EYE CLOSE, SIDE RAIL UPX2. BED LOW.
--- NOTE | 2018-08-09 03:57 | NUR ---
REST IN BED. CALL LIGHT IN REACH.
--- NOTE | 2018-08-09 04:47 | NUR ---
PT IN BED LOWEST POSITION, EYES CLOSED AROUSES EASILY TO VOICE, RESPIRATIONS EVEN AND UNLABORED, NO NEEDS NOTED, FLUIDS AND CALL LIGHT WITHIN REACH I have reviewed this patient and I concur with the Shift Assessment completed by the Licensed Practical Nurse today this shift.
--- NOTE | 2018-08-09 07:05 | NUR ---
RECEIVED REPORT. ASSISTED WITH SBA FROM BATHROOM TO BED. DENIES ANY NEEDS OR PAIN. ALERT AND ORIENTED X4. NO SIGNS OF DISTRESS NOTED. CALL LIGHT WITHIN REACH, FALL PRECAUTIONS IN PLACE. WILL CONTINUE TO MONITOR
[2018-08-09 08:00] VITALS: BP 173/58
--- NOTE | 2018-08-09 11:34 | NUR ---
IN THERAPY GYM PARTICIPATING IN OT. NO SIGNS OF DISTRESS NOTED
--- NOTE | 2018-08-09 14:08 | NUR ---
IN THERAPY GYM PARTICIPATING IN PT WITH NEFTALY. NO SIGNS OF DISTRESS NOTED
[2018-08-09 19:49] VITALS: BP 154/53
--- NOTE | 2018-08-09 20:00 | NUR ---
PATIENT RECEIVED SITTING UP IN BED WATCHING TV. VITAL SIGNS & ASSESSMENT DONE. NO C/O PAIN OR DISTRESS. BEDSIDE TABLE & CALL LIGHT WITHIN REACH. C/O LOOSE STOOLS REQUEST FOR IMMODIUM. WILL CONTINUE TO MONITOR.
--- NOTE | 2018-08-10 01:20 | NUR ---
PT IN BED LOWEST POSITION, EYES CLOSED AROUSES EASILY TO VOICE, RESPIRATIONS EVEN AND UNLABORED, NO NEEDS NOTED, FLUIDS AND CALL LIGHT WITHIN REACH
--- NOTE | 2018-08-10 01:23 | NUR ---
PT IN BED LOWEST POSITION, EYES CLOSED AROUSES EASILY TO VOICE, RESPIRATIONS EVEN AND UNLABORED, NO NEEDS NOTED, FLUIDS AND CALL LIGHT WITHIN REACH
--- NOTE | 2018-08-10 01:26 | NUR ---
PT IN BED LOWEST POSITION, EYES CLOSED AROUSES EASILY TO VOICE, RESPIRATIONS EVEN AND UNLABORED, NO NEEDS NOTED, FLUIDS AND CALL LIGHT WITHIN REACH
[2018-08-10 07:47] VITALS: BP 117/51
--- NOTE | 2018-08-10 08:15 | NUR ---
PT RESTING IN BED WITH EYES OPEN CALL LIGHT IN REACH WILL MONITER
[2018-08-10 08:46] LABS: BASOPHILS 0.4 % (0-2); HEMATOCRIT 34.5 % (36.0-48.0); IMMATURE GRANULOCYTES 0.2 % (0-5); LYMPHOCYTES 22.4 % (15-50); MCH 28.3 pg (26.0-34.0); MCHC 34.8 g/dL (31.0-37.0); MCV 81.4 fL (80.0-100.0); MEAN PLATELET VOLUME 8.8 fL (7.4-10.4); MONOCYTES 9.9 % (2-11); NEUTROPHILS 63.1 % (40-80); PLATELET COUNT 327 10x3/uL (130-400); RBC 4.24 10x6/uL (4.00-5.40); WBC 9.5 10x3/uL (4.8-10.8)
[2018-08-10 09:12] LABS: ANION GAP 15.3 mmol/L (8-16); CARBON DIOXIDE 25.5 mmol/L (21.0-32.0); CREATININE - SERUM 1.2 mg/dL (0.6-1.3); POTASSIUM - SERUM 3.8 mmol/L (3.5-5.1)
--- NOTE | 2018-08-10 15:24 | NUR ---
CARE TEAM MEETING: PATIENT DOING WELL IN THERAPY . TENATIVE DISCHARGE DATE IS 08/18/18. DISCHARGE PLANS ARE FOR PATIENT TO RETURN HOME. WILL CONTINUE TO FOLLOW WITH PATIENT.
--- NOTE | 2018-08-10 17:00 | NUR ---
I have reviewed this patient and I concur with the Shift Assessment completed by the Licensed Practical Nurse today this shift.
--- NOTE | 2018-08-10 18:01 | NUR ---
PT RESTING IN BED WITH EYES OPEN CALL LIGHT IN REACH WILL MONITER
[2018-08-10 19:42] VITALS: BP 159/45
--- NOTE | 2018-08-11 00:19 | NUR ---
PATIENT C/O INSOMNIA. TEMAZEPAM GIVE.
--- NOTE | 2018-08-11 03:30 | NUR ---
I have reviewed this patient and I concur with the Shift Assessment completed by the Licensed Practical Nurse today this shift.
--- NOTE | 2018-08-11 03:39 | NUR ---
PATIENT EYES CLOSED. RESPIRATIONS 18 & EVEN. BED LOW. CALL LIGHT WITHIN REACH. WILL CONTINUE TO MONITOR.
[2018-08-11 08:13] VITALS: BP 142/58
--- NOTE | 2018-08-11 16:39 | NUR ---
RESTING QUIETLY IN BED. EYES CLOSED. CALL LIGHT IN REACH. SIDE RAILS UP X2. BED IN LOWEST POSITION.
--- NOTE | 2018-08-11 17:39 | NUR ---
SITTING UP IN BED WATCHING TV. JUST FINISHED SUPPER. DENIES NEEDS. CALL LIGHT IN REACH
[2018-08-11 19:00] VITALS: BP 121/48
--- NOTE | 2018-08-11 20:00 | NUR ---
PATIENT RECEIVED SITTING UP IN BED. FAMILY AT BEDSIDE. ASSESSMENT & VITAL SIGNS DONE. NO C/O PAIN OR DISTRESS. ALARM WAIVER SIGNED IN THE PRECENSE OF HER DAUGHTER. WAIVER PLACED IN CHART. BED LOW. WALKER AT BEDSIDE. CALL LIGHT WITHIN REACH. WILL CONTINUE TO MONITOR.
--- NOTE | 2018-08-12 02:15 | NUR ---
PATIENT EYES CLOSED. RESPIRATIONS 18 & EVEN. BED LOW. CALL LIGHT & WALKER WITHIN REACH. WILL CONTINUE TO MONITOR.
--- NOTE | 2018-08-12 04:00 | NUR ---
PATIENT USED CALL LIGHT FOR TOILETEING PER THIS NURSE REQUEST. PATIENT HAD TAKEN SLEEPING & PAIN MEDICATION EARLIER IN SHIFT. PATIENT USED WALKER SLOW STEADY WALK. VOID. PATIENT RETURNED TO BED. CALL LIGHT WITHIN REACH. WILL CONMTINUE TO MONITOR.
--- NOTE | 2018-08-12 07:32 | NUR ---
PT RESTING IN BED WITH EYES OPEN CALL LIGHT IN REACH NO PROBLEMS WILL MONITER
[2018-08-12 07:34] LABS: BASOPHILS 0.7 % (0-2); HEMATOCRIT 35.1 % (36.0-48.0); HEMOGLOBIN 11.9 g/dL (12-16); IMMATURE GRANULOCYTES 0.1 % (0-5); LYMPHOCYTES 19.9 % (15-50); MCH 28.1 pg (26.0-34.0); MCHC 33.9 g/dL (31.0-37.0); MEAN PLATELET VOLUME 8.9 fL (7.4-10.4); MONOCYTES 11.3 % (2-11); PLATELET COUNT 287 10x3/uL (130-400); RBC 4.23 10x6/uL (4.00-5.40); RDW 13.3 % (11.5-14.5); WBC 7.3 10x3/uL (4.8-10.8)
[2018-08-12 08:08] LABS: ANION GAP 14.1 mmol/L (8-16); CALCIUM 9.3 mg/dL (8.5-10.1); CARBON DIOXIDE 25.9 mmol/L (21.0-32.0); CREATININE - SERUM 1.1 mg/dL (0.6-1.3)
[2018-08-12 09:00] VITALS: BP 148/34
[2018-08-12 19:31] VITALS: BP 141/45
--- NOTE | 2018-08-12 20:10 | NUR ---
THE PATIENT WAS LYING IN BED WHEN STAFF ENTERED HER ROOM. BED IS IN THE LOW POSITION WITH SIDERAILS X2 AND CALL LIGHT WITHIN REACH. THE PATIENT WAS EDUCATED ON THE NEED TO CALL STAFF WHENEVER SHE WOULD LIKE HELP GETTING OUT OF BED. THE PATIENT DEMONSTRATED UNDERSTANDING VIA TEACHBACK METHOD. THE PATIENT APPEARS COMFORTABLE WITH NO QUESTIONS OR CONCERNS AT THIS TIME.
--- NOTE | 2018-08-13 05:12 | NUR ---
THE PATIENT APPEARS TO BE SLEEPING WITH BED IN THE LOW POSITION WITH SIDERAILS X2 AND CALL LIGHT WITHIN REACH.
[2018-08-13 07:55] VITALS: BP 168/63
--- NOTE | 2018-08-13 08:15 | NUR ---
PT EATING BREAKFAST TOLERATING WELL WILL MONITER
--- NOTE | 2018-08-13 08:15 | NUR ---
PT RESTING IN BED EATING BREAKFAST TOLERATING WELL WILL MONITER
--- NOTE | 2018-08-13 12:59 | NUR ---
I have reviewed this patient and I concur with the Shift Assessment completed by the Licensed Practical Nurse today this shift.
--- NOTE | 2018-08-13 18:22 | NUR ---
PT RESTING IN BED WITH EYES OPEN CALL LIGHT IN REACH WILL MONITER
--- NOTE | 2018-08-13 19:31 | NUR ---
THE PATIENT WAS LYING IN BED AND WATCHING TELEVISION WHEN STAFF ENTERED HER ROOM. BED IS IN THE LOW POSITION WITH SIDERAILS X2 AND CALL LIGHT WITHIN REACH. THE PATIENT WAS EDUCATED ON AND DEMONSTRATES THE NEED TO CALL FOR ASSISTANCE WITH ADLS. THE PATIENT APPEARS COMFORTABLE WITH NO QUESTIONS OR CONCERNS AT THIS TIME.
[2018-08-13 20:39] VITALS: BP 111/38
--- NOTE | 2018-08-14 07:41 | NUR ---
PT RESTING IN BED WITH EYES OPEN CALL LIGHT IN REACH WILL MONITER
--- NOTE | 2018-08-14 12:47 | NUR ---
I have reviewed this patient and I concur with the Shift Assessment completed by the Licensed Practical Nurse today this shift.
--- NOTE | 2018-08-14 17:50 | NUR ---
PT RESTING IN BED WITH EYES OPEN CALL LIGHT IN REACH NO PROBLEMS WILL MONITER
--- NOTE | 2018-08-14 19:42 | NUR ---
THE PATIENT WAS LYING IN BED WHEN STAFF ENTERED HER ROOM. BED IS IN THE LOW POSITION WITH SIDERAILS X2 AND CALL LIGHT WITHIN REACH. THE PATIENT WAS EDUCATED TO CALL FOR STAFF ASSISTANCE WHENEVER SHE WANTS TO GET OUY OF BED. THE PATIENT DEMONSTRATES UNDERSTANDING VIA TEACHBACK METHOD. THE PATIENT APPEARS COMFORTABLE WITH NO QUESTIONS OR CONCERNS AT THIS TIME.
[2018-08-14 20:38] VITALS: BP 134/39
[2018-08-15 06:17] LABS: BASOPHILS 0.6 % (0-2); EOSINOPHILS 4.4 % (0-7); HEMATOCRIT 35.3 % (36.0-48.0); IMMATURE GRANULOCYTES 0.2 % (0-5); LYMPHOCYTES 27.1 % (15-50); MCH 28.6 pg (26.0-34.0); MCV 84.2 fL (80.0-100.0); MEAN PLATELET VOLUME 8.7 fL (7.4-10.4); MONOCYTES 7.1 % (2-11); NEUTROPHILS 60.6 % (40-80); PLATELET COUNT 266 10x3/uL (130-400); RBC 4.19 10x6/uL (4.00-5.40); RDW 13.1 % (11.5-14.5)
[2018-08-15 06:30] LABS: ANION GAP 13.8 mmol/L (8-16); CALCIUM 9.3 mg/dL (8.5-10.1); CARBON DIOXIDE 26.3 mmol/L (21.0-32.0); CREATININE - SERUM 1.1 mg/dL (0.6-1.3); POTASSIUM - SERUM 4.1 mmol/L (3.5-5.1)
--- NOTE | 2018-08-15 09:06 | NUR ---
PT AM MEDS ADMINISTERED. PT DENIES NEEDS. WCTM.
[2018-08-15 09:35] VITALS: BP 156/50
[2018-08-15 20:22] VITALS: BP 158/41
--- NOTE | 2018-08-15 21:55 | NUR ---
THE PATIENT WAS LYING IN BED AND WATCHING TELEVISON WHEN STAFF ENTERED HER ROOM. BED IS IN THE LOW POSITION WITH SIDERAILS X2 AND CALL LIGHT WITHIN REACH. THE PATIENT WAS EDUCATED ON THE NEED TO PRACTICE SAFE TRANSFERS AND DEMONSTRATED UNDERSTANDING VIA TEACHBACK METHOD. THE PATIENT APPEARS COMFORTABLE WITH NO QUESTIONS OR COCNERNS AT THIS TIME.
[2018-08-16 08:00] VITALS: BP 167/75
--- NOTE | 2018-08-16 08:08 | NUR ---
PT AM MEDS ADMINSITERD. PT DENIES NEEDS. WCTM.
--- NOTE | 2018-08-16 10:01 | NUR ---
NUTRITION F/U CHART REVIEWED, PT OOR. TOLERATING REG DIET WITH GOOD INTAKE RECENT MEALS. WILL CONTINUE TO PROVIDE DIET, MONITOR PT PROGRESS. RD FOLLOWING
--- NOTE | 2018-08-16 20:00 | NUR ---
PATIENT RECEIVED SITTING UP IN BED WATCHING TV. ASSESSMENT & VITAL SIGNS DONE. NO C/O PAIN OR DISTRESS. BED LOW. CALL LIGHT & BEDSIDE TABLE WITHIN REACH. WILL CONTINUE TO MONITOR.
[2018-08-16 20:02] VITALS: BP 147/46
[2018-08-17 08:02] VITALS: BP 147/62
[2018-08-17 21:26] VITALS: BP 148/75
--- NOTE | 2018-08-18 04:36 | NUR ---
I have reviewed this patient and I concur with the Shift Assessment completed by the Licensed Practical Nurse today this shift.
--- NOTE | 2018-08-18 06:48 | NUR ---
PT IN BED LOWEST POSITION, EYES CLOSED, AROUSES EASILY, RESPIRATIONS EVEN AND UNLABORED, NO IMMEDIATE NEEDS NOTED, FLUIDS AND CALL LIGHT WITHIN REACH
--- NOTE | 2018-08-18 07:40 | NUR ---
PT AM MEDS ADMINISTERED. PT REQ AND REC'D PAIN MEDICATION AT THIS TIME. PT DISCHARGE INSTRUCTIONS REV'D AND PT STATES UNDERSTANDING. PT MEDICATIONS CALLED IN TO ALL CARE PHARMACY. PT AND PT DAUGHTER NOTIFIED OF CALLED IN MEDICATIONS AND PAPER SCRIPT FOR TRAMADOL GIVEN TO PATIENT. PT WAITING FOR DAUGHTER TO PICK HER UP AND STATES IT WILL BE AROUND LUNCHTIME. WCTM.
[2018-08-18 08:00] VITALS: BP 143/53
[2018-08-18] MEDS ORDERED: ULTRAM50 MG PO (08:31)
--- NOTE | 2018-08-18 09:55 | NUR ---
PATIENT DISCHARGING HOME TODAY WITH FAMILY. [facility] WILL PROVIDE THERAPY AT HOME. [facility] WILL DELIVER A ROLLING WALKER TO PATIENT. DR. REYNOLDS/NITISH KILLIAN 08/22/18 @ 11:30. PATIENT CHOICE FORM AND IM[facility] FORMS SIGNED, COPY GIVEN TO PATIENT AND FILED IN CHART. DISCHARGE INSTRUCTIONS WITH [facility] FAXED TO PCP, HOME HEALTH AND REVIEWED WITH PATIENT.
--- NOTE | 2018-08-18 12:57 | NUR ---
PT FAMILY HERE. PT DISCHARGED HOME AT THIS TIME. ESCORTED OUT VIA WHEELCHAIR BY HOSPITAL STAFF.
== END 2018-08-18 12:58 | disposition home health service (06) | DRG 72 ==
LOC: D.REHAB 19:05
PROVIDERS: ADMIT Emergency Medicine; ATTEND Emergency Medicine
DX: G93.41 Metabolic encephalopathy (principal); E86.0 Dehydration; E87.6 Hypokalemia; D72.829 Elevated white blood cell count, unspecified; I95.9 Hypotension, unspecified; R00.2 Palpitations; R42 Dizziness and giddiness; E78.5 Hyperlipidemia, unspecified; I25.10 Atherosclerotic heart disease of native coronary artery without angina pectoris; K21.9 Gastro-esophageal reflux disease without esophagitis; I10 Essential (primary) hypertension; R73.9 Hyperglycemia, unspecified; R41.3 Other amnesia

== ENCOUNTER 2019-08-14 08:00 | Outpatient (CLI) | payer MEDICARE, BC ==
[2018-08-06 11:40] VITALS: BMI 33.3
[~2019-08-14 08:00] MED LIST changes: +ULTRAM50 MG PO
== END 2019-08-14 10:00 | disposition home or self-care (01) ==
LOC: D.MAMMO 08:00
PROVIDERS: ATTEND Nurse Practitioner Family
DX: Z12.31 Encounter for screening mammogram for malignant neoplasm of breast (principal)

== ENCOUNTER → 2019-08-18 11:03 | Outpatient (CLI) | payer MEDICARE, BC ==
[2018-08-06 11:40] VITALS: BMI 33.3
== END | disposition home or self-care (01) ==
LOC: D.US 11:03
PROVIDERS: ATTEND Nurse Practitioner Family
DX: R92.8 Other abnormal and inconclusive findings on diagnostic imaging of breast (principal)